=== PATIENT | female | born 1995 ===

== ENCOUNTER → 2024-09-08 | Outpatient (CLI) | payer BC, OTHER ==
[2024-09-10 05:06] LABS: TB1 Ag VALUE 0.23 IU/mL (.)
== END | disposition home or self-care (01) ==
LOC: LAB 11:47
PROVIDERS: ATTEND Family Medicine
DX: Z11.1 Encounter for screening for respiratory tuberculosis (principal); Z00.00 Encounter for general adult medical examination without abnormal findings